=== PATIENT | male | born 1970 | race Caucasian/White ===

== ENCOUNTER 2016-09-06 04:57 | Day surgery (SDC) | payer MEDICARE, MEDICAID ==
--- NOTE | 2016-09-05 09:16 | HP ---
DATE OF CLINIC: 08/30/2016 CARLTON SOLIS : 1970 PLANNED PROCEDURE: Left Knee Lateral Release and Tibial Tubercle Osteotomy DATE OF SURGERY: September 06, 2016 SURGEON: Subhash Sandhu M.D. HISTORY OF PRESENT ILLNESS Carlton Solis is a 46 year old male. * Medication list reviewed with patient allergy list reviewed with patient. This is a 46-year-old male who is 3.5 months out from a left total hip arthroplasty for a fracture. This is a 46-year-old gentleman with Down syndrome. He returns today for routine follow up. His mom states that he is doing very well. He is ambulating without significant problems with the hip. He has had no events and no instability, no complaints at all there. He continues to have left knee pain which was sort of his issue before it was discovered that he had a displaced femoral neck fracture and it seems that this is likely related to a subluxating or dislocating patella. He localizes all of his pain to the medial side of his patella. They rated that about a 5/10 today. It seems to get worse the more active that he is. They have been treating with Ultram, but he continues to have pain there. They also have a knee brace, this does not completely resolve his symptoms. They have tried anti-inflammatories and have not had any significant relief from this. They are interested in surgical option to address his patellar instability. We discussed treatment options, both operative and non-operative, and he has elected to proceed with surgery. He presents today preoperatively. PAST MEDICAL AND SURGICAL HISTORY: His past medical and surgical history are as previously documented. CURRENT MEDICATION * *Supplement Miscellaneous Fiber,Cinnamon, Chromium, Multivitamins, Calcium, Vit D3, Fish Oil, Super B Complex, Cranberry, 0 days, 0 refills * Aspirin 325 MG Tablet 1 once a day 1 po qd x 4 wks for blood clot prevention, 0 days, 0 refills * Claritin 10 MG Tablet 1 once a day 0 days, 0 refills * Colace 100 MG Capsule 1 twice a day Take bid while on narcotics, 0 days, 0 refills * Desonide 0.05 % Cream aaa bid prn, 30 days, 1 refills * Diclofenac Sodium 75 MG Tablet Delayed Release 1 tab twice daily as needed with food, 30 days, 3 refills * Levothyroxine Sodium 50 MCG Tablet 1 once a day, 90 days, 3 refills * Sertraline HCl 100 MG Tablet as directed as directed DIRECTED, TAKE TWO TABLETS BY MOUTH ONCE EVERY DAY., 90 days, 1 refills * Simvastatin 40 MG Tablet 1 once a day, 90 days, 1 refills * TraMADol HCl 50 MG Tablet 1 po q 6hrs prn daily as needed for pain. Use sparingly. Ok to fill 05/07/16., 28 days, 0 refills * Tylenol Extra Strength 500 MG Tablet as needed 0 days, 0 refills PAST MEDICAL/SURGICAL HISTORY Reported: Medical: A previous fracture, history of Arthritis, Depression, and Thyroid Disorder. Surgical / Procedural: Prior surgery Bilateral cataract surgery 2014, replacement of a hip Left 04/11/[address] Subhash Sandhu at [facility], and Eye Surgery cataracts 04/2010. Diagnoses: Hyperlipidemia. Thyroid disorder, hyperlipidemia, depression Bilat cataract surgery 2009 history of sinus infections. SOCIAL HISTORY Behavioral: Caffeine use pt drinks diet coke, and decaf tea and non-smoker never smoked. Smoking status: Never smoker. Home Environment: Lives with parents. Work: Occupation N/A. Marital: Single. ALLERGIES * Lactose FAMILY HISTORY Family history unchanged Paternal: Diabetes mellitus Stroke syndrome Maternal: Hypertension Family medical history Mother: OA, HBP, Thyroid Disease Father: Heart Disease, Diabetes, Cancer REVIEW OF SYSTEMS No recent constitutional symptoms to include fevers and chills. No recent cardiovascular symptoms to include chest pain or palpitations. No recent respiratory symptoms to include shortness of breath or recent infections. PHYSICAL FINDINGS * Vitals taken 08/30/2016 10:54 am BP-Sitting L 98/53 mmHg BP Cuff Size Regular Pulse Rate-Sitting 78 bpm Pulse Rhythm Regular Respiration Rate 14 per min Temp-Oral 98.1 F Height 59 in Weight 162 lbs Body Mass Index 32.7 kg/m2 Body Surface Area 1.69 m2 Ears, Nose, Throat: * ENT: normal. Lungs: * Clear to auscultation. Cardiovascular: Heart Rate and Rhythm: * Normal. Abdomen: * Normal. Neurological: Motor: * Dominant Hand = Right Hand. Patient is a well-developed, well-nourished male in no acute distress. They are awake, alert and conversant throughout the encounter. He has the typical appearance of a patient with Down syndrome. He is very short in stature at about 4'11". HEENT: He is normocephalic and atraumatic except as noted above. NECK: His neck is soft and supple. He has previously been cleared of any cervical spine pathology. LUNGS: His lungs are inflating equally. CARDIOVASCULAR: His heart has a regular rate and rhythm. ABDOMEN: His abdomen soft and non-tender, and nondistended. FOCUSED MUSCULOSKELETAL EXAM: Left hip incision appears to be healed appropriately. There is no significant erythema or ecchymosis or swelling there. His left knee shows a hypermobile patella with significant lateral patellar apprehension and I can partially dislocate the patella with significant pain for him. He does have a positive J sign. There is no evidence of medial instability at the patella. His knee is otherwise stable to varus and valgus stress at 0 and 30 and he has 5/5 strength in flexion and extension at the knee with a warm and well perfused leg distally and normal resting tone. IMAGING A review of previous x-rays of his knee demonstrate laterally riding patella, although on his [place] view it appears well reduced in the notch. It does not appear to be particularly elevated. His joint spaces are well-maintained and he has no fractures or dislocations visualized. ASSESSMENT * Depression A 46-year-old gentleman with Down syndrome who has lateral subluxation of his patella. THERAPY * Patient fall risk screen positive. * Patient eligible for fall risk assessment using walker. * Patient received fall risk assessment. PLAN * Recurrent dislocation of patella, left knee TraMADol HCl 50 MG TABS, 1-2 tabs every 6 to 8 hours prn pain, 14 days, 0 refills Left knee lateral release and tibial tubercle osteotomy. CARE TEAM Marina Martinez MD [facility] SURGICAL CONSENT We have discussed surgical options including left knee lateral release, tibial tubercle osteotomy and non-operative management. The patient was counseled in detail regarding the diagnosis, treatment options available, prognosis of each treatment option and the potential risks and complications. The risks of surgery include, but are not limited to, anesthetic , neurovascular complications, pulmonary embolism, deep vein thrombosis, wound dehiscence, failure of any or all of the discussed procedures, infection of the joint or surrounding soft tissue, need for revision surgery, chronic pain, limitations in activities of daily living, inability to return to work, and loss of normal range of motion or functional use of the extremity. There is the possibility of failure over time that may require additional operative or non-operative treatment. The patient acknowledged that there are a number of perioperative risks not mentioned here and would still like to proceed. The patient is aware of and understands these risks, and wishes to proceed with the proposed surgical procedure and other procedures as indicated at the time of surgery. We will have the patient see their PCP for a preoperative medical risk assessment. The preoperative instructions were reviewed with the patient and all questions were answered. PB/sg
[2016-09-06] MEDS ORDERED: LACTATED RINGERS 1,000 ML ONE (05:37)
[2016-09-06] MEDS ORDERED: IV START KIT ONE (05:37)
[2016-09-06] MEDS ORDERED: CEFAZOLIN SODIUM 2 GRAM PREMIX 100 ML IV PRN (05:45)
[2016-09-06] MEDS ORDERED: CEFAZOLIN SODIUM 2 GRAM PREMIX 100 ML IV ONE (05:49)
[2016-09-06] MEDS ORDERED: DEXAMETHASONE SOD PHOS 4 MG/1 ML VIAL ONE (06:37)
[2016-09-06] MEDS ORDERED: LIDOCAINE 2% (PRES FREE) 5 ML VIAL ONE (06:37)
[2016-09-06] MEDS ORDERED: ONDANSETRON 4 MG/2ML 2 ML VIAL ONE (06:37)
[2016-09-06] MEDS ORDERED: METOCLOPRAMIDE HCL 5 MG/ML 2ML VIAL ONE (06:37)
[2016-09-06] MEDS ORDERED: PROPOFOL 40 ML IV ONE (06:37)
[2016-09-06] MEDS ORDERED: FENTANYL 100 MCG/2 ML VIAL ONE (06:38)
[2016-09-06] MEDS ORDERED: MIDAZOLAM HCL 1 MG/ML 2ML VIAL ONE (06:38)
[2016-09-06] MEDS ORDERED: EPHEDRINE SULFATE UD SYR 25 MG 25 MG/5 ML SYRINGE IV ONE (07:31)
[2016-09-06] MEDS ORDERED: ATROPINE SULFATE 0.4 MG/1 ML VIAL IV PRN (08:02)
[2016-09-06] MEDS ORDERED: HYDROMORPHONE HCL 1 MG/ML SYRINGE IV PRN ×2 (08:02→10:04)
[2016-09-06] MEDS ORDERED: NALOXONE HCL 0.4 MG/ML VIAL IV PRN (08:02)
[2016-09-06] MEDS ORDERED: ONDANSETRON 4 MG/2ML 2 ML VIAL IV PRN ×2 (08:02→10:04)
[2016-09-06] MEDS ORDERED: PROMETHAZINE HCL 25 MG/ML VIAL IM PRN (08:02)
[2016-09-06] MEDS ORDERED: LACTATED RINGERS 1,000 ML IV SCH ×2 (08:15→10:04)
--- NOTE | 2016-09-06 08:58 | RAD ---
EXAMINATION:KNEE LEFT 1 OR 2 VIEWS TECHNIQUE: Fluoroscopic assistance was provided for Dr. Sandhu. Fluoroscopy time: 12.8 seconds Number of images: 2 FINDINGS: 2 submitted images exhibit cannulated screw placement in the anterior tibial tubercle extending anterior posteriorly. Soft tissue changes compatible with recent surgery are noted. IMPRESSION: Fluoroscopic assistance provided as described above.
--- NOTE | 2016-09-06 09:19 | PCMBPN ---
Brief Post Op Note: Date of Procedure: 09/06/16 Start Time: 0745 Preoperative Diagnosis: 1. left knee lateral patellar dislocations Postoperative Diagnosis: 1. Same Procedure: left knee arthroscopic lateral release and anteromedialization of the tibial tubercle Surgeon: Subhash Sandhu MD Assist: Cecilia Waters Anesthesia: Nirmal Bustos Findings: as above; 1 cm medialization Condition: stable to PACU Complications: as above IV Fluids: 1300 mLs of LR Urine Output: 0 mLs Estimated Blood Loss: 25 mLs Tourniquet Time: 51 min at 250 mm Hg Specimens: none Implants: 2x 4.0 cannulated screws, 30 mm Drains: none Subhash Sandhu MD
[2016-09-06] MEDS: FENTANYL 100 MCG/2 ML VIAL IV PRN ×2 (09:20→09:35)
[2016-09-06] MEDS ORDERED: OXYCODONE HCL 5 MG TABLET PO PRN (10:04)
[2016-09-06] MEDS ORDERED: ACETAMINOPHEN 325 MG TABLET PO PRN (10:04)
[2016-09-06] MEDS ORDERED: DIPHENHYDRAMINE HCL 50 MG/1 ML VIAL IV PRN (10:04)
--- NOTE | 2016-09-07 10:04 | OP ---
Carlton MONTELONGO : 1970 [id number] DATE OF PROCEDURE: September 06, 2016 PREOPERATIVE DIAGNOSIS: Left knee lateral patellar dislocations. POSTOPERATIVE DIAGNOSIS: Left knee lateral patellar dislocations. PROCEDURE PERFORMED: LEFT KNEE ARTHROSCOPIC LATERAL RELEASE AND ANTEROMEDIALIZATION OF THE TIBIAL TUBERCLE. SURGEON: Subhash Sandhu M.D. SAMPLE PREP TECHNICIAN: Vanesa Camacho ANESTHESIA: Nirmal Bustos C.R.N.Lalit. SPECIMENS: No material was sent to the laboratory. ESTIMATED BLOOD LOSS: 25 mL FLUIDS REPLACED: 1300 mL of crystalloid. TOURNIQUET TIME: 51 minutes at 250 mmHg. URINE: No urine. IMPLANTS: Two 4.0 cannulated screws 30 mm in length. DRAINS: No drains. INDICATIONS: This is a 46-year-old gentleman who has a history of chronic lateral dislocation of the patella. He has physical exam findings, which demonstrate lateral instability of the left patella and radiographic findings, including a significant tibial tubercle trochlear groove interval that would suggests that a medialization of his patellar tendon insertion would benefit from a stability standpoint. Given these findings he was offered an anteromedialization and a concomitant lateral release. The risks, benefits and alternatives were discussed with the patient and with his mother who is his primary caregiver. They elected to proceed with surgery. Informed consent was obtained and documented in the chart. The patient was placed on the schedule at the first available convenience. DESCRIPTION OF PROCEDURE: The patient was identified in the preoperative holding area where he was marked with an indelible marker. He was taken to the operating room where he was placed in the supine position on the operating room table. General anesthesia was induced. Perioperative antibiotics were administered. A well padded pre-calibrated nonsterile tourniquet was placed on his right upper thigh. He was prepped and draped in the usual sterile fashion for surgery. An operative time out was performed and confirmed by all members of the operative team. The patient received perioperative antibiotics. His leg was elevated and exsanguinated using the Esmarch bandage and the tourniquet inflated to 250 mmHg. A standard lateral portal was created at 30 degree viewing arthroscope was inserted into the knee. Optics were directed anteromedially and a medial portal was localized with a spinal needle and created in a standard fashion. The trochlear groove was inspected and found to be relatively shallow which we knew from his preoperative imaging studies. The chondral surfaces of the patella and the groove were largely intact. A hook style radiofrequency ablator was inserted through this medial portal and an arthroscopic lateral release was performed resulting in significant medialization of the patella at rest. At this point we felt that we had addressed the intra-articular pathology so the camera and instruments were removed from the knee. I made a 3 cm longitudinal incision overlying the tibial tubercle and dissected down identifying the borders of the patellar tendon. A small oscillating saw was used to make a tibial tubercle osteotomy with a sloping plane from the lateral side which would medialize and very slightly anteriorize the position of the tubercle on the tibia. Based on his preoperative imaging we medialized the tubercle by approximately 1 cm, it was pinned in place and the knee was taken for a range of motion and his patellar stability appear to be much improved. At this point we placed two 4.0 mm cannulated screws 30 mm in length through this tibial tubercle into its new location. The fascia over the extensor mechanism was closed with a #0 Vicryl. Subcutaneous tissues were closed with #2-0 Vicryl and the skin was closed with heaven. A sterile dressing of Xeroform, fluffs, web roll and an ABD was applied. The patient was placed into a cylinder cast with his leg in extension. The tourniquet was deflated. The drapes were removed. The patient was awakened from his anesthesia and extubated in the operating room and [facility] and taken postoperatively to the postanesthesia care unit in stable conditions. There were no observed intraoperative complications during this procedure. Job [id number] Cc: Amsterdamanna Urbano
== END 2016-09-06 12:00 | disposition home or self-care (01) ==
LOC: SDC 04:57
PROVIDERS: ATTEND Orthopaedic Surgery
DX: M22.02 Recurrent dislocation of patella, left knee (principal); E03.9 Hypothyroidism, unspecified; E78.5 Hyperlipidemia, unspecified; Q90.9 Down syndrome, unspecified; Z79.82 Long term (current) use of aspirin